=== PATIENT | male | born 1970 ===

== ENCOUNTER 2023-03-19 12:51 | Outpatient (AMB) | payer OTHER, SELFPAY ==
--- NOTE | 2023-03-19 13:16 | MHC.OFFVIS ---
Intake Intake Visit Reasons: Erectile dysfunction Intake Note: New Patient presents for initial visit erectile dysfunction Urology Medications: none Blood Thinner: none diabetic: yes Retail Service Specialist Required: No Accompanied by: Unknown Allergies No Known Allergies Allergy (Verified 03/19/23 21:31) Medication List - Last Reconciled 03/19/23 by THALIA Norton- blood sugar diagnostic (FreeStyle Lite Strips) As directed flash glucose scanning reader (FreeStyle Wali 2 [place]) As directed insulin aspart U-100 subcut insulin aspart U-100 subcut levothyroxine 175 mcg PO DAILY tadalafil 5 mg PO DAILY 90 days HPI HPI Comments History of Present Illness Details Clearance is a pleasant 52-year-old male patient of Dr. Abdi who was accompanied by his at today's visit. He has a past medical history of diabetes, obstructive sleep apnea, obesity, hypothyroidism, hypertension, depression, and anxiety. He presents to the office today as a new patient for erectile dysfunction. In discussion with the patient today reports to be doing and feeling well. He reports noting over the last 1-2 years to be having intermittent episodes of erectile dysfunction. He discusses recently being diagnosed with diabetes and his A1c level at diagnosis was approximately 12 and he is now down to 9.3. He discusses trialing Viagra with good effect however this was expensive. When asked he reports noting erectile dysfunction when attempting to have sexual intercourse more often. He states when attempting to have sexual intercourse daily or even every other day he notes issues with obtaining and maintaining erections however when he waits 5 -7 days apart he feels erections are adequate for penetration and has no issues with obtaining or maintaining erections. He also discusses wanting to undergo infertility assessment as he is trying to have another child. He discusses previously having one child however was incarcerated and feels he missed out on her childhood and being a father. He discusses experiencing retrograde ejaculation. Discussed at length diabetes in relation to erectile dysfunction as well as retrograde ejaculation. Discussed trial of low-dose Cialis with p.r.n. on demand. Discussed obtaining testosterone free and total for further assessment evaluation as well as PSA. Patient otherwise denies any bothersome urinary issues. He denies urinary urgency, urinary frequency, incontinence, nocturia, hematuria, dysuria, foul smelling urine, changes to urinary stream, flank pain, fever, and or chills. He is happy with his current voiding parameters. COUNTS INCLUDE 234 BEDS AT THE [facility] Medical History Type I diabetes mellitus LYNN (obstructive sleep apnea) Class 1 obesity Hypothyroidism HTN (hypertension) Depression with anxiety Review of Systems Const Reports as per HPI Eyes Reports no additional complaints ENT Reports no additional complaints Card Reports as per HPI Resp Reports as per HPI GI Reports no additional complaints Reports as per HPI Musc Reports no additional complaints Neuro Reports no additional complaints Psych Reports as per HPI Endo Reports as per HPI Seng/Lymph Reports no additional complaints Aller/Immun Reports no additional complaints Physical Exam Const General: cooperative, comfortable, no acute distress, well developed, alert and awake Orientation/consciousness: patient oriented x3 Limitations: no limitations HEENT Head: Yes normal to inspection, Yes normocephalic and Yes atraumatic Ears: hearing grossly normal bilaterally Eyes General: appearance normal, both eyes and all related structures Neck Neck: Yes normal visual inspection and Yes trachea midline Chest Chest palpation & inspection: normal inspection of the chest Resp Effort & Inspection: normal respiratory effort and able to speak in complete sentences Cardio Rate: regular rate GI Inspection: Yes normal to inspection General: Yes no CVA tenderness Back/Spine/Pelvis Back: no CVA tenderness Skin General skin exam: no rashes or lesions noted Neuro General: patient oriented x3 Extrem General: Yes normal to inspection Psych Appearance: grossly normal and well kempt Mental Status: mental status grossly normal Speech and movement: Normal speech and movement present and Clear speech present Affect: normal affect Attitude: cooperative Thought process: Normal thought process present Thought content: Normal thought content present Insight: Fair insight present (Psych) Judgement: Fair judgement present (Psych) Results AMB Urinalysis, Automated UA Leukoctes 0 Eric/uL Last Edit by [employer] on 03/19/23 13:40 UA Nitrite Last Edit by Patel Benítez on 03/19/23 13:40 UA Urobilinogen 0.2 mg/dL Last Edit by [employer] Benítez on 03/19/23 13:40 UA Protein 0 mg/dL Last Edit by [employer]un[employer] Benítez on 03/19/23 13:40 UA pH 6.0 Last Edit by [employer] Benítez on 03/19/23 13:40 UA Blood 0 Abram/uL Last Edit by Patel Benítez on 03/19/23 13:40 UA Specific [place] 1.015 Last Edit by Patel Benítez on 03/19/23 13:40 UA Ketone Negative Last Edit by Patel Benítez on 03/19/23 13:40 UA Bilirubin 0 mg/dL Last Edit by Patel Benítez on 03/19/23 13:40 UA Glucose 1000 mg/dL Last Edit by Patel Benítez on 03/19/23 13:40 Results Reviewed Results Reviewed: Laboratory Last Values Urine pH (Auto) 6.0 03/19/23 13:33 Specific [place] (Auto) 1.015 03/19/23 13:33 Urine Protein (Auto) 0 mg/dL 03/19/23 13:33 Glucose (UA)(Auto) 1000 mg/dL 03/19/23 13:33 Urine Ketones (Auto) Negative 03/19/23 13:33 Urine Blood (Auto) 0 Abram/uL 03/19/23 13:33 Urine Bilirubin (Auto) 0 mg/dL 03/19/23 13:33 Urine Urobilinogen (Auto) 0.2 mg/dL 03/19/23 13:33 Leukocyte Esterase (Auto) 0 Eric/uL 03/19/23 13:33 Assessment & Plan Assessment & Plan (1) Erectile dysfunction associated with type 2 diabetes mellitus: Code(s): E11.69 - Type 2 diabetes mellitus with other specified complication; N52.1 - Erectile dysfunction due to diseases classified elsewhere Plan In office urinalysis results reviewed with the patient today. Discussed at length lifestyle modifications for improvement in erectile dysfunction and retrograde ejaculation. Discussed importance of compliance with CPAP machine for sleep apnea for improvement in erectile dysfunction as well as overall health and well-being. Will obtain testosterone, free testosterone, and PSA for further assessment evaluation. Start 5 mg of Cialis daily. Prescription provided for p.r.n. dosing of Cialis for on demand. Discuss treatment of retrograde ejaculation with possible Sudafed however also discussed Sudafed in correlation to patient reporting erectile dysfunction. He will think about this. Patient denies any bothersome urinary issues. Patient reports be happy with current voiding parameters. Discussed at length importance of lowering A1c and maintaining diabetes in good control for improvement in erectile dysfunction, retrograde ejaculation, and overall health and well-being. Follow-up in 1-2 months with labs to be completed prior; or sooner with any issues, concerns, and or questions. Orders: Orders Prostate Specific Antigen Today E11.69 - Type 2 diabetes mellitus with other specified complication, N40.0 - Benign prostatic hyperplasia without lower urinary tract symptoms, N52.1 - Erectile dysfunction due to diseases classified elsewhere AMB Urinalysis Automated Today Z13.9 - Encounter for screening, unspecified Testosterone, Free/Total Today E11.69 - Type 2 diabetes mellitus with other specified complication, N52.1 - Erectile dysfunction due to diseases classified elsewhere Medications: New [id number] 5 mg PO DAILY 90 days 90 tabs 0RF tadalafil (Cialis) administer approximately 30min before sexual activity; do not use more than 1 dose per 24hrs BIN [id number] [facility] Group DR33 20 mg PO DAILY 90 days PRN 30 tabs 0RF sexual activity Coding Level of Care Code New Pt Level 4 (30402) Diagnoses Erectile dysfunction associated with type 2 diabetes mellitus E11.69; N52.1
== END 2023-03-19 13:52 | disposition home or self-care (01) ==
PROVIDERS: PCP Pediatrics; Visit Provider Nurse Practitioner Family
DX: E11.69 Type 2 diabetes mellitus with other specified complication (principal); N52.1 Erectile dysfunction due to diseases classified elsewhere
CPT/HCPCS: 99204

== ENCOUNTER → 2023-03-19 | Outpatient (BNVA) | payer OTHER, SELFPAY | PROVIDERS: PCP Pediatrics; Visit Provider Nurse Practitioner Family | DX: E11.69 Type 2 diabetes mellitus with other specified complication (principal); N52.1 Erectile dysfunction due to diseases classified elsewhere | CPT/HCPCS: 81003 ==

== ENCOUNTER 2023-03-22 08:59 | Outpatient (REF) | payer OTHER, SELFPAY ==
[2023-03-22 11:32] LABS: Prostate Specific Antigen 0.32 ng/mL
[2023-04-08 06:37] LABS: Testosterone, Total 225
[2023-04-08 06:38] LABS: Testosterone, Free 60.3
== END 2023-03-22 09:00 | disposition home or self-care (01) ==
LOC: HO.10HDL 08:59
PROVIDERS: Visit Provider Nurse Practitioner Family
DX: N40.0 Benign prostatic hyperplasia without lower urinary tract symptoms (principal); E11.69 Type 2 diabetes mellitus with other specified complication; N52.1 Erectile dysfunction due to diseases classified elsewhere
CPT/HCPCS: 36415; 84153; 84402; 84403

== ENCOUNTER 2023-04-08 12:17 | Outpatient (AMB) | payer OTHER, SELFPAY ==
--- NOTE | 2023-04-08 13:05 | A.OFFVIS_ITS ---
Intake Intake Visit Reasons: 2w/testo(set) Intake Note: Patient presents for follow up visit erectile dysfunction Urology Medications: Tadalafil Blood Thinner: none diabetic: yes Erosion Control Specialist Required: No Accompanied by: Self / Same As Patient Allergies No Known Allergies Allergy (Verified 04/08/23 20:01) Medication List - Last Reconciled 04/08/23 by THALIA Norton- blood sugar diagnostic (FreeStyle Lite Strips) As directed flash glucose scanning reader (FreeStyle Wali 2 [place]) As directed insulin aspart U-100 subcut insulin aspart U-100 subcut levothyroxine 175 mcg PO DAILY oxycodone 5 mg PO BID PRN pentoxifylline ER 400 mg PO BID 90 days tadalafil 5 mg PO DAILY 90 days tadalafil (Cialis) 5 mg PO DAILY 90 days tadalafil (Cialis) 20 mg PO DAILY PRN 90 days vitamin E (dl, acetate) 450 mg PO DAILY 90 days HPI HPI Comments History of Present Illness Details Clearance is a pleasant 52-year-old male patient of Dr. Abdi. He has a past medical history of diabetes, obstructive sleep apnea, obesity, hypothyroidism, hypertension, depression, and anxiety. He presents to the office today for follow-up. Of note, patient was seen approximately 3 weeks ago as a new patient for erectile dysfunction had reports of retrograde ejaculation. In discussion with the patient today reports to be doing and feeling well. He reports feeling somewhat improvement in ED with low dose Cialis and PRN dose prior to sexual activity. Recent labs reviewed with the patient today. 04/12 PSA--0.32, Total Testosterone--225 , and Free Testosterone--60.3. He reports noting over the last 1-2 years to be having intermittent episodes of erectile dysfunction. He discusses recently being diagnosed with diabetes and his A1c level at diagnosis was approximately 12 and he is now down to 9.3. When asked he reports noting erectile dysfunction when attempting to have sexual intercourse more often. He states when attempting to have sexual intercourse daily or even every other day he notes issues with obtaining and maintaining erections however when he waits 5 -7 days apart he feels erections are adequate for penetration and has no issues with obtaining or maintaining erections. He also discusses wanting to undergo infertility assessment as he is trying to have another child. He discusses previously having one child however was incarcerated and feels he missed out on her childhood and being a father. He discusses experiencing retrograde ejaculation. Discussed at length diabetes in relation to erectile dysfunction as well as retrograde ejaculation. Discussed trial of low-dose Cialis with p.r.n. on demand. Discussed obtaining testosterone free and total in 3 months for further assessment evaluation. Patient otherwise denies any bothersome urinary issues. He denies urinary urgency, urinary frequency, incontinence, nocturia, hematuria, dysuria, foul smelling urine, changes to urinary stream, flank pain, fever, and or chills. He is happy with his current voiding parameters. [facility], [facility] Medical History Type I diabetes mellitus LYNN (obstructive sleep apnea) Class 1 obesity Hypothyroidism HTN (hypertension) Depression with anxiety Review of Systems Const Reports as per HPI Eyes Reports no additional complaints ENT Reports no additional complaints Card Reports as per HPI Resp Reports as per HPI GI Reports no additional complaints Musc Reports no additional complaints Neuro Reports no additional complaints Psych Reports as per HPI Endo Reports as per HPI Seng/Lymph Reports no additional complaints Aller/Immun Reports no additional complaints Physical Exam Const General: cooperative, comfortable, no acute distress, well developed, alert and awake Orientation/consciousness: patient oriented x3 Limitations: no limitations HEENT Head: Yes normal to inspection, Yes normocephalic and Yes atraumatic Ears: hearing grossly normal bilaterally Eyes General: appearance normal, both eyes and all related structures Neck Neck: Yes normal visual inspection and Yes trachea midline Chest Chest palpation & inspection: normal inspection of the chest Resp Effort & Inspection: normal respiratory effort and able to speak in complete sentences Cardio Rate: regular rate GI Inspection: Yes normal to inspection General: Yes no CVA tenderness Back/Spine/Pelvis Back: no CVA tenderness Skin General skin exam: no rashes or lesions noted Neuro General: patient oriented x3 Extrem General: Yes normal to inspection Psych Appearance: grossly normal and well kempt Mental Status: mental status grossly normal Speech and movement: Normal speech and movement present and Clear speech present Affect: normal affect Attitude: cooperative Thought process: Normal thought process present Thought content: Normal thought content present Insight: Fair insight present (Psych) Judgement: Fair judgement present (Psych) Results AMB Urinalysis, Automated UA Leukoctes 0 Eric/uL Last Edit by Patel Benítez on 04/08/23 13:29 UA Nitrite Negative Last Edit by Patel Benítez on 04/08/23 13:29 UA Urobilinogen 0.2 mg/dL Last Edit by Patel Benítez on 04/08/23 13:29 UA Protein 0 mg/dL Last Edit by Patel Benítez on 04/08/23 13:29 UA pH 6.0 Last Edit by Patel Benítez on 04/08/23 13:29 UA Blood 0 Abram/uL Last Edit by Patel Benítez on 04/08/23 13:29 UA Specific [place] 1.015 Last Edit by Patel Benítez on 04/08/23 13:29 UA Ketone Negative Last Edit by Patel Benítez on 04/08/23 13:29 UA Bilirubin 0 mg/dL Last Edit by Patel Benítez on 04/08/23 13:29 UA Glucose 500 mg/dL Last Edit by Patel Benítez on 04/08/23 13:29 Results Reviewed Results Reviewed: Laboratory Last Values Urine pH (Auto) 6.0 04/08/23 13:13 Specific [place] (Auto) 1.015 04/08/23 13:13 Urine Protein (Auto) 0 mg/dL 04/08/23 13:13 Glucose (UA)(Auto) 500 mg/dL 04/08/23 13:13 Urine Ketones (Auto) Negative 04/08/23 13:13 Urine Blood (Auto) 0 Abram/uL 04/08/23 13:13 Urine Nitrite (Auto) Negative 04/08/23 13:13 Urine Bilirubin (Auto) 0 mg/dL 04/08/23 13:13 Urine Urobilinogen (Auto) 0.2 mg/dL 04/08/23 13:13 Leukocyte Esterase (Auto) 0 Eric/uL 04/08/23 13:13 Assessment & Plan Assessment & Plan (1) Erectile dysfunction associated with type 2 diabetes mellitus: Code(s): E11.69 - Type 2 diabetes mellitus with other specified complication; N52.1 - Erectile dysfunction due to diseases classified elsewhere (2) Retrograde ejaculation: Code(s): N53.14 - Retrograde ejaculation Plan In office urinalysis results reviewed with the patient today. Discussed at length lifestyle modifications for improvement in erectile dysfunction and retrograde ejaculation. Discussed importance of compliance with CPAP machine for sleep apnea for improvement in erectile dysfunction as well as overall health and well-being. Recent testosterone, free testosterone, and PSA results reviewed with the patient today. Continue low-dose Cialis 5 mg daily as well as on demand as needed for sexual activity. Start pentoxifylline and a vitamin-D as discussed and prescribed. Discuss treatment of retrograde ejaculation with possible Sudafed however also discussed Sudafed in correlation to patient reporting erectile dysfunction. He will think about this. Patient denies any bothersome urinary issues. Patient reports be happy with current voiding parameters. Discussed at length importance of lowering A1c and maintaining diabetes in good control for improvement in erectile dysfunction, retrograde ejaculation, and overall health and well-being. Follow-up in 3 months with labs to be completed prior; or sooner with any issues, concerns, and or questions. Orders: Orders AMB Urinalysis Automated Today Z13.9 - Encounter for screening, unspecified Testosterone, Free/Total 3 Months E11.69 - Type 2 diabetes mellitus with other specified complication, N52.1 - Erectile dysfunction due to diseases classified elsewhere Medications: New pentoxifylline ER administer with meals 400 mg PO BID 90 days 180 tabs 1RF vitamin E (dl, acetate) 450 mg PO DAILY 90 days 90 caps 1RF N48.6 - Induration penis plastica Patient Instructions: The patient had an opportunity to ask questions regarding the treatment plan. All questions were answered. Physical exam, labs, and imaging were discussed and reviewed in detail. As well as risks, benefits, and discussion of treatment choices. No major barriers to understanding were identified. The patient expressed understanding and agreement with the above treatment plan. The patient was made aware they should contact our office by phone for worsening of their current condition, the appearance of new symptoms, or with any questions or concerns. Compliance is encouraged with any medications and follow up testing that is ordered. It is a privilege to be allowed the opportunity to participate in? your urological care.? Again, if you have any questions or concerns If you have any questions or concerns please do not hesitate to contact me. The office is [phone]. This note is constructed using voice recognition software. While every effort has been made to ensure accuracy orthopedic nurse practitioner errors may have been included. Yours sincerely, SHANICE Norton Coding Level of Care Code Est Pt Level 4 (17814) Diagnoses Erectile dysfunction associated with type 2 diabetes mellitus E11.69; N52.1 Retrograde ejaculation N53.14
== END 2023-04-08 13:48 | disposition home or self-care (01) ==
PROVIDERS: PCP Pediatrics; Visit Provider Nurse Practitioner Family
DX: E11.69 Type 2 diabetes mellitus with other specified complication (principal); N52.1 Erectile dysfunction due to diseases classified elsewhere; N53.14 Retrograde ejaculation; Z13.9 Encounter for screening, unspecified
CPT/HCPCS: 99214

== ENCOUNTER → 2023-04-08 12:17 | Outpatient (BNVA) | payer OTHER, SELFPAY | PROVIDERS: PCP Pediatrics; Visit Provider Nurse Practitioner Family | DX: E11.69 Type 2 diabetes mellitus with other specified complication (principal); N52.1 Erectile dysfunction due to diseases classified elsewhere; N53.14 Retrograde ejaculation | CPT/HCPCS: 81003; 99212 ==